=== PATIENT | female | born 1970 | race Caucasian/White ===

== ENCOUNTER → 2017-01-02 | Outpatient (CLI) | payer OTHER ==
--- NOTE | 2017-01-02 09:45 | REPMRS ---
Patient History The patient states she had a clinical breast exam in 2015.No known family history of cancer. Taking hormonal contraceptives for 29 years. Digital Mammo Screening Bilat: January 02, 2017 - Exam #: [id number] Bilateral CC and MLO view(s) were taken. Technologist: Virginia Meadows, Technologist Prior study comparison: December 28, 2015, digital mammo diagnostic bilateral performed at [facility]. June 15, 2015, right breast digital mammo diagnostic unilateral performed at [facility]. FINDINGS: The breast tissue is heterogeneously dense. This may lower the sensitivity of mammography. There has been no change in the appearance of the mammogram from the prior studies. There is a moderate amount of residual fibroglandular tissue which is fairly symmetric. There is no interval development of dominant mass, areas of architectural distortion, or clustered microcalcification typical of malignancy. ASSESSMENT: BI-RADS/ACR category 1 mammogram. Negative. Recommendation Routine screening mammogram in 1 year (for women over age 40). This mammogram was interpreted with the aid of an FDA-approved computer-aided dectection system. Electronically Signed By: Kuldeep Villegas MD 01/02/17 0944
== END ==
LOC: M RAD 07:20
PROVIDERS: ATTEND Nurse Practitioner Family
DX: Z12.31 Encounter for screening mammogram for malignant neoplasm of breast (principal)

== ENCOUNTER → 2018-01-08 | Outpatient (CLI) | payer OTHER | LOC: M RAD 08:09 | DX: Z12.31 Encounter for screening mammogram for malignant neoplasm of breast (principal); Z79.3 Long term (current) use of hormonal contraceptives | CPT/HCPCS: 77067 ==

== ENCOUNTER → 2019-01-12 | Outpatient (REF) | payer OTHER ==
--- NOTE | 2019-01-12 09:20 | REPMRS ---
Patient History The patient states she had a clinical breast exam in 09/29.No known family history of cancer. Taking hormonal contraceptives for 29 years. 3D TOMOSYNTHESIS WAS PERFORMED. Digital Mammo Screening Bilat: January 12, 2019 - Exam #: [id number] Bilateral CC and MLO view(s) were taken. Technologist: Virginia Meadows, Technologist Prior study comparison: January 08, 2018, bilateral digital mammo screening bilat performed at [facility]. January 02, 2017, bilateral digital mammo screening bilat performed at [facility]. FINDINGS: The breast tissue is heterogeneously dense. This may lower the sensitivity of mammography. There has been no change in the appearance of the mammogram from the prior studies. There is a moderate amount of residual fibroglandular tissue which is fairly symmetric. There is no interval development of dominant mass, areas of architectural distortion, or clustered microcalcification typical of malignancy. Assessment: BI-RADS/ACR category 1 mammogram. Negative Mammogram. Recommendation Routine screening mammogram in 1 year (for women over age 40). This mammogram was interpreted with the aid of an FDA-approved computer-aided dectection system. Electronically Signed By: Kuldeep Villegas MD 01/12/19 0950
== END ==
LOC: M RAD 07:04 → EDSTATUS 07:30
PROVIDERS: ATTEND Nurse Practitioner Family
DX: Z12.31 Encounter for screening mammogram for malignant neoplasm of breast (principal); Z79.3 Long term (current) use of hormonal contraceptives

== ENCOUNTER → 2020-03-22 | Outpatient (CLI) | payer OTHER ==
--- NOTE | 2020-03-22 11:49 | REP ---
CT paranasal sinuses: 03/22/2020. Indication: Sinusitis. Technique: Unenhanced axial CT images of the paranasal sinuses were performed with coronal reconstructions provided. Comparison: CT brain dated 02/03/2020. Findings: There are no air-fluid levels or frothy secretions to suggest an acute inflammation. There is diffuse periosteal mucosal thickening within the bilateral maxillary sinuses as well as the left greater than right anterior ethmoid air cells. There is minimal periosteal mucosal thickening within the inferior frontal sinuses. The bilateral frontal and right sphenoid sinuses are hypoplastic. The sphenoethmoidal recesses as well as the left OMC are patent. There is soft tissue compromise of the left greater than right frontal recesses. There is no significant deviation of the nasal septum. The visualized ocular, intraorbital and intracranial anatomy appears normal. The mastoid air cells are clear. Impression: Relatively mild, by CT evaluation, chronic-appearing paranasal sinus mucosal disease as described. Electronically Signed by [place] DO 03/22/2020 11:41 A
== END ==
LOC: M RAD 07:28
PROVIDERS: ATTEND Otolaryngology
DX: J32.4 Chronic pansinusitis (principal); J30.9 Allergic rhinitis, unspecified; H90.3 Sensorineural hearing loss, bilateral

== ENCOUNTER → 2020-03-23 | Outpatient (CLI) | payer OTHER ==
--- NOTE | 2020-03-24 12:37 | REP ---
BILATERAL MAMMOGRAM WITH 3D TOMOSYNTHESIS: No family history of breast cancer. [facility] lifetime risk of breast cancer 7.8%. COMPARISON: Mammogram 01/12/2019 and 01/08/2018. Bilateral mammogram performed in the MLO and CC projections with 3D tomosynthesis. Breast parenchyma is moderately dense limiting the sensitivity of the mammogram. I suspect a 1.6 cm nodular density posterolaterally on the right CC view. This is not definitely seen on the MLO view. There is an adjacent stable intramammary lymph node in the axillary tail. I see no other evidence of mass or clustered microcalcifications. IMPRESSION: ACR 0 incomplete. Possible 1.6 cm nodule posterolateral right breast only seen on the CC view. Recommend spot compression views and ultrasound to further evaluate. This mammogram was interpreted with the aid of an FDA-approved computer-aided detection system. The patient states she/he had a clinical breast exam in 09/2019. The patient letter being requested is M0.
== END ==
LOC: M WHC 07:31
PROVIDERS: ATTEND Physician Assistant
DX: Z12.31 Encounter for screening mammogram for malignant neoplasm of breast (principal); N63.10 Unspecified lump in the right breast, unspecified quadrant

== ENCOUNTER → 2020-03-31 | Outpatient (CLI) | payer OTHER | LOC: M LAB 13:23 | PROVIDERS: ATTEND Otolaryngology | DX: J32.4 Chronic pansinusitis (principal) ==

== ENCOUNTER → 2020-04-12 | Outpatient (CLI) | payer OTHER ==
--- NOTE | 2020-04-13 09:48 | REP ---
DIGITAL UNILATERAL DIAGNOSTIC RIGHT BREAST MAMMOGRAPHY WITH CAD, 3D TOMOGRAPHY, AND FOCUSED RIGHT BREAST SONOGRAPHY: HISTORY: Screening mammography March 23, 2020 was BIRADS category 0 because of a possible nodular neodensity in the right breast laterally on the craniocaudad view. Diagnostic imaging was recommended. MAMMOGRAPHIC FINDINGS: Magnified focal spot compression CC, MLO, and true mediolateral views do not show evidence of a mass. A normal stable intramammary lymph node is visible in the upper outer quadrant. Dense breast parenchyma is again seen. No spiculation or microcalcification is seen. No worrisome skin change is appreciated. SONOGRAPHIC FINDINGS: Focused right upper outer quadrant sonography demonstrates two normal-appearing lymph nodes in the upper outer quadrant and axillary region. These display hyperechoic fatty center and a normal oval shaped with a hilar notch. They do not appear pathologic. One of these is felt to account for the stable lymph node visible on the mammogram. Also noted in the upper outer quadrant are several tiny cysts, the largest of which is at 10-o'clock 3 cm from the nipple measuring 6 mm in greatest diameter. No suspicious mass lesion is seen. No architectural distortion shadowing IMPRESSION: BIRADS category 2 benign findings. Repeat screening mammography recommended 1 year. This mammogram was interpreted with the aid of an FDA-approved computer-aided detection system. The patient letter being requested is M1 dense .
== END ==
LOC: M WHC 15:35
PROVIDERS: ATTEND Physician Assistant
DX: Z12.31 Encounter for screening mammogram for malignant neoplasm of breast (principal)

== ENCOUNTER → 2021-04-18 | Outpatient (CLI) | payer OTHER ==
--- NOTE | 2021-04-18 09:50 | REPMRS ---
Patient History The patient states she had a clinical breast exam in September 2020. No known family history of cancer. Took hormonal contraceptives for 29 years. Patient states no breast complaints today. Patient has signed MRS History Sheet. Digital Woman Screen Mammo: April 18, 2021 - Exam #: [id number] Bilateral CC and MLO view(s) were taken. Technologist: Saima Beaulieu, Technologist Prior study comparison: April 12, 2020, right breast diagnostic unilateral mammo performed at [facility]. March 23, 2020, bilateral digital woman screen mammo performed at [facility]. FINDINGS: The breast tissue is heterogeneously dense. This may lower the sensitivity of mammography. Screening. Digital screening (2D) mammography was performed bilaterally in the CC and MLO projections. Additionally, breast tomosynthesis (3D mammography) was performed bilaterally in the CC and MLO projections. Todays exam was compared to the prior exam/exams. By history, the patient has no complaints of a palpable breast abnormality or other significant breast complaints. The breasts are unchanged in size and shape.Once again, dense heterogenous fibroglandular elements are seen bilaterally in a stable appearing pattern but to such a degree that the sensitivity of the mammogram in detecting cancer is decreased. There are no saran-soft tissue densities or spiculated masses. There is no internal architectural distortion.Once again, stable benign appearing calcifications are seen. There are no suspicious saran-calcific clusters. Skin thickening or nipple retraction is not present. IMPRESSION: BI-RADS Category 2- Benign Findings. There is no evidence of malignant alteration of the breasts. Followup examination recommended in one year. The Volpara volumetric breast density category is C, the breasts are heterogenously dense which may obscure small masses. This mammogram was read with the assistance of Snapguide,an FDA approved computer aided detection system for mammography. The lifetime Tyrer-Cuzick score is 7.7 % Due to the density of the breasts or Tyrer Cuzick score of 20% or greater, MRI/whole breast screening ultrasound is warranted. Negative x-ray reports should not delay surgical consultation if a dominant or clinically suspicious mass is present. Not all breast cancers can be identified by mammography. Therefore, we recommend that you continue to perform regular breast self-examination and physical examination and then promptly contact your physician of any concerns or changes. Adenosis and dense breasts may obscure an underlying neoplasm. Assessment: BI-RADS/ACR category 2 mammogram. Benign Findings. Recommendation Routine screening mammogram of both breasts in 1 year. Electronically Signed By: Travon Barillas DO 04/18/21 0911
== END ==
LOC: M WHC 06:58
PROVIDERS: ATTEND Physician Assistant
DX: Z12.31 Encounter for screening mammogram for malignant neoplasm of breast (principal)